=== PATIENT | male | born 1995 | race African-American/Black ===

== ENCOUNTER 2017-02-02 09:23 | Emergency (ER) | payer OTHER ==
[~2017-02-02] VITALS: Ht 185.4 cm; Wt 123.0 kg
[2017-02-02 09:54] VITALS: BP 147/52
== END 2017-02-02 11:00 | disposition home or self-care (01) ==
LOC: ER 10:07
DX: M79.602 Pain in left arm (principal); M79.601 Pain in right arm; R20.2 Paresthesia of skin
CPT/HCPCS: 99281

== ENCOUNTER 2017-04-04 07:27 | Emergency (ER) | payer BC, OTHER ==
[~2017-04-04] VITALS: Ht 188 cm; Wt 123.0 kg
[2017-04-04 11:41] VITALS: BP 103/59
== END 2017-04-04 12:00 | disposition home or self-care (01) ==
LOC: ER 07:59
DX: M25.512 Pain in left shoulder (principal); R07.89 Other chest pain
CPT/HCPCS: 71010; 73030; 99284